=== PATIENT | male | born 1995 | race Two or more races ===

== ENCOUNTER 2018-10-01 16:26 | Emergency (ER) | payer SELFPAY ==
[~2018-10-01] VITALS: Ht 180.3 cm; Wt 158.8 kg
[2018-10-01 21:14] VITALS: BP 151/96
== END 2018-10-01 21:46 | disposition home or self-care (01) ==
LOC: ER 16:34
DX: R51 Headache (principal); F12.10 Cannabis abuse, uncomplicated
CPT/HCPCS: 70450

== ENCOUNTER 2018-10-30 17:15 | Emergency (ER) | payer SELFPAY ==
[~2018-10-30] VITALS: Ht 180.3 cm; Wt 158.8 kg
[2018-10-30 18:17] VITALS: BP 146/90
[2018-10-30 19:19] LABS: Urine Bacteria NONE SEEN /hpf (None Seen); Urine Blood Negative /uL (Negative); Urine Mucus FEW (None Seen); Urine WBC 1 /hpf (0 - 3)
[2018-10-30] MEDS ORDERED: AZITHROMYCIN 250 MG TAB PO ONE (20:30)
[2018-10-30] MEDS ORDERED: cefTRIAXone SODIUM 250 MG VL IM ONE (20:30)
== END 2018-10-30 20:58 | disposition home or self-care (01) ==
LOC: ER 17:15
DX: B00.9 Herpesviral infection, unspecified (principal); Z20.7 Contact with and (suspected) exposure to pediculosis, acariasis and other infestations
CPT/HCPCS: 81001; 96372; 99283; J0696

== ENCOUNTER 2018-12-09 01:21 | Emergency (ER) | payer SELFPAY ==
[~2018-12-09] VITALS: Ht 180.3 cm; Wt 154.2 kg
[2018-12-09 01:26] VITALS: BP 145/87
[2018-12-09] MEDS ORDERED: BACLOFEN 10 MG TAB PO ONE (03:15)
[2018-12-09] MEDS ORDERED: HYDROcodone-ACET 10/325MG TAB PO ONE (03:15)
== END 2018-12-09 03:43 | disposition home or self-care (01) ==
LOC: ER 01:21
DX: M62.838 Other muscle spasm (principal); V43.62XA Car passenger injured in collision with other type car in traffic accident, initial encounter; Y93.89 Activity, other specified; Y99.8 Other external cause status; Y92.410 Unspecified street and highway as the place of occurrence of the external cause
CPT/HCPCS: 71101; 74176

== ENCOUNTER 2022-02-27 00:42 | Emergency (ER) | payer MEDICAID ==
[~2022-02-27] VITALS: Ht 180.3 cm; Wt 154.5 kg
[2022-02-27 02:05] VITALS: BP 146/81
== END 2022-02-27 08:20 | disposition left against medical advice (07) ==
LOC: ER 00:42
DX: K08.89 Other specified disorders of teeth and supporting structures (principal); Z53.21 Procedure and treatment not carried out due to patient leaving prior to being seen by health care provider